=== PATIENT | male | born 1950 | race Caucasian/White ===

== ENCOUNTER 2020-11-05 12:42 | Outpatient (RCR) | payer MEDICARE, OTHER ==
[2021-01-30] MEDS ORDERED: AMLO1CAP5 PO (12:09)
[2021-01-30] MEDS ORDERED: TMSL.4C PO (12:09)
[2021-01-30] MEDS ORDERED: FINA5TAB6 PO (12:09)
[2021-01-30] MEDS ORDERED: MULT-1136 PO (12:09)
[2021-01-30] MEDS ORDERED: ASPI-808 PO (12:09)
[2021-01-30] MEDS ORDERED: DOCO1CAP3 PO (12:09)
[2021-01-30] MEDS ORDERED: RIVA20TA PO (12:09)
[2021-01-30] MEDS ORDERED: TRAM50TA3 PO (12:09)
[2021-01-30] MEDS ORDERED: VITA-189 PO (12:09)
[2021-01-30] MEDS ORDERED: AMIO200T6 PO (12:09)
== END 2021-02-03 | disposition home or self-care (01) ==
LOC: ONC 12:42
PROVIDERS: ATTEND Radiology Radiation Oncology
DX: C61 Malignant neoplasm of prostate (principal); I10 Essential (primary) hypertension; I25.10 Atherosclerotic heart disease of native coronary artery without angina pectoris; J44.9 Chronic obstructive pulmonary disease, unspecified; Z87.891 Personal history of nicotine dependence; Z80.1 Family history of malignant neoplasm of trachea, bronchus and lung
CPT/HCPCS: 76873; G0463; 99205

== ENCOUNTER 2021-01-30 05:33 | Outpatient (CLI) | payer MEDICARE, OTHER ==
[~2021-01-30] VITALS: Ht 170 cm; Wt 100.0 kg
[2021-01-30] MEDS ORDERED: RIVA20TA PO (12:09)
[2021-01-30] MEDS ORDERED: FINA5TAB6 PO (12:09)
[2021-01-30] MEDS ORDERED: VITA-189 PO (12:09)
[2021-01-30] MEDS ORDERED: DOCO1CAP3 PO (12:09)
[2021-01-30] MEDS ORDERED: AMLO1CAP5 PO (12:09)
[2021-01-30] MEDS ORDERED: TMSL.4C PO (12:09)
[2021-01-30] MEDS ORDERED: ASPI-808 PO (12:09)
[2021-01-30] MEDS ORDERED: TRAM50TA3 PO (12:09)
[2021-01-30] MEDS ORDERED: AMIO200T6 PO (12:09)
[2021-01-30] MEDS ORDERED: MULT-1136 PO (12:09)
== END 2021-01-30 12:27 | disposition home or self-care (01) ==
LOC: PREOP 05:33
PROVIDERS: ATTEND Specialist
DX: Z01.818 Encounter for other preprocedural examination (principal)

== ENCOUNTER 2021-02-06 08:44 | Day surgery (SDC) | payer MEDICARE, OTHER ==
[~2021-02-06] VITALS: Ht 170 cm; Wt 100.0 kg
[2021-02-06] VITALS (8 sets, daily range): BP systolic 98–154; BP diastolic 61–98
[~2021-02-06 08:44] MED LIST: AMIO200T6 PO; AMLO1CAP5 PO; ASPI-808 PO; DOCO1CAP3 PO; FINA5TAB6 PO; MULT-1136 PO; RIVA20TA PO; TMSL.4C PO; TRAM50TA3 PO; VITA-189 PO
[2021-02-06] MEDS: LACTATED RINGERS 1,000 ML IV PRN ×2 (10:08→11:45)
--- NOTE | 2021-02-06 10:19 | Progress Note-Pre Operative ---
Pre-Operative Progress Note H&P Reviewed The H&P was reviewed, patient examined and no changes noted. Date Seen by Provider: Feb 06, 2021 Time Seen by Provider: 10:18 Date H&P Reviewed: Feb 06, 2021 Time H&P Reviewed: 10:19 Pre-Operative Diagnosis: Prostate cancer cT2b, PSA (4.3 on Proscar), Gerry 7 (4+3) KRISTIE AUGUSTE MD Feb 06, 2021 10:19
[2021-02-06] MEDS ORDERED: TRAM50TA3 PO (10:21)
[2021-02-06] MEDS ORDERED: CEPH500T PO (10:23)
--- NOTE | 2021-02-06 10:28 | Discharge Inst-Simple/Standard ---
Discharge Inst-Standard Reconcile Patient Problems Problems Reviewed?: Yes Discharge Medications New, Converted or Re-Newed RX: RX Given to Pt/Family Patient Instructions/Follow Up Plan of Care/Instructions/FU: 1) One month post implant scan at [facility] [place] [facility] 03/06/21 at 1:00 p.m. 2)Follow up with Dr. Baldwin at 03/06/21 at 2:45 p.m. Activity as Tolerated: Yes Discharge Diet: No Restrictions Other Inst to Patient Please instruct patient on catheter care and teaching on jacobo catheter removal for Thursday02/11/21. KRISTIE AGUUSTE MD Feb 06, 2021 10:28
[2021-02-06] MEDS ORDERED: fentaNYL INJ 100 MCG/2 ML AMP ONE (10:39)
[2021-02-06] MEDS ORDERED: BACITRACIN OINTMENT 28 GM TUBE ONE (10:52)
[2021-02-06] MEDS ORDERED: ONDANSETRON 4 MG/2 ML (SDV) Z0FRAN ONE (11:24)
[2021-02-06] MEDS ORDERED: LIDOCAINE PF 2% 5 ML (XYLOCAINE) VIAL ONE (11:24)
[2021-02-06] MEDS ORDERED: proPOfol 200 MG/20 ML (DIPRIVAN) VIAL IV ONE (11:24)
[2021-02-06] MEDS ORDERED: SEVOFLURANE (ULTANE) 15 ML INHAL SOLN ONE (11:47)
--- NOTE | 2021-02-06 12:09 | Progress Note-Post Operative ---
Post-Operative Progess Note Surgeon (s)/[facility] Former (s) Surgeon KRISTIE AUGUSTE MD [facility] Former: Mani ALLEN MD Pre-Operative Diagnosis Prostate cancer cT2b, PSA (4.3 on Proscar), Gerry 7 (4+3) Post-Operative Diagnosis Same as pre-op Procedure & Operative Findings Date of Procedure 02/06/21 Procedure Performed/Findings (1) 67% Cesium 131 permanent prostate seed implant (2) Injection of biodegradable hydrogel prostate-rectal spacer utilizing the [employer] Deja system (3) Cystogram Prostate volume 31.35 cc Anesthesia Type General Estimated Blood Loss Estimated blood loss (mL): Minimal Specimens/Packing Specimens Removed None Packing: None KRISTIE AUGUSTE MD Feb 06, 2021 12:09
--- NOTE | 2021-02-06 13:40 | Diagnostic Imaging Report ---
INDICATION: History of prostate cancer. Brachytherapy. COMPARISON: None. TOTAL FLUOROSCOPY TIME: 9.9 seconds. TOTAL NUMBER OF FLUOROSCOPIC IMAGES SAVED: 1. FINDINGS: Fluoroscopic guidance was provided during brachytherapy. Images provided show metallic radiation seeds projecting over the lower midline pelvis. Please note, interpreting radiologist was not present during the procedure. IMPRESSION: 1. Fluoroscopic guidance provided intraoperatively. Dictated by: Dictated on workstation # [id number]
== END 2021-02-06 13:40 | disposition home or self-care (01) ==
LOC: SDC 08:44
PROVIDERS: ATTEND Radiology Radiation Oncology
DX: C61 Malignant neoplasm of prostate (principal); I10 Essential (primary) hypertension; I25.10 Atherosclerotic heart disease of native coronary artery without angina pectoris; I48.91 Unspecified atrial fibrillation; J44.9 Chronic obstructive pulmonary disease, unspecified; M19.042 Primary osteoarthritis, left hand; M19.041 Primary osteoarthritis, right hand; Z79.899 Other long term (current) drug therapy; Z79.82 Long term (current) use of aspirin; Z79.891 Long term (current) use of opiate analgesic; Z79.01 Long term (current) use of anticoagulants; Z87.891 Personal history of nicotine dependence
CPT/HCPCS: 55874; 55876; 76000; 76965; 77290; 77318; 77332; 77370; 77470; 77778; 87081; C1715 ×2; C1889; C2643

== ENCOUNTER 2021-05-03 08:28 | Outpatient (RCR) | payer MEDICARE, OTHER ==
[~2021-05-03 08:28] MED LIST changes: -AMIO200T6 PO; +AMIO200T65 PO; +CEPH500T PO
== END 2021-05-17 | disposition home or self-care (01) ==
LOC: ONC 08:28
PROVIDERS: ATTEND Radiology Radiation Oncology
DX: Z51.0 Encounter for antineoplastic radiation therapy (principal); C61 Malignant neoplasm of prostate; I10 Essential (primary) hypertension; I25.10 Atherosclerotic heart disease of native coronary artery without angina pectoris; J44.9 Chronic obstructive pulmonary disease, unspecified; I48.91 Unspecified atrial fibrillation; Z87.891 Personal history of nicotine dependence; Z80.1 Family history of malignant neoplasm of trachea, bronchus and lung
CPT/HCPCS: 77290; 77295; 77300; 77301; 77334; 77336; 77338; 77385; 77470

== ENCOUNTER 2021-06-18 09:55 | Outpatient (RCR) | payer MEDICARE, OTHER | END 2021-07-15 | disposition home or self-care (01) | LOC: ONC 09:55 | PROVIDERS: ATTEND Radiology Radiation Oncology | DX: C61 Malignant neoplasm of prostate (principal); I10 Essential (primary) hypertension; I25.10 Atherosclerotic heart disease of native coronary artery without angina pectoris; J44.9 Chronic obstructive pulmonary disease, unspecified; I48.91 Unspecified atrial fibrillation; Z87.891 Personal history of nicotine dependence | CPT/HCPCS: 84153; G0463; 99213 ==

== ENCOUNTER 2021-12-26 09:17 | Outpatient (RCR) | payer MEDICARE, OTHER | END 2022-01-15 | disposition home or self-care (01) | LOC: ONC 09:17 | PROVIDERS: ATTEND Radiology Radiation Oncology | DX: C61 Malignant neoplasm of prostate (principal); I10 Essential (primary) hypertension; I25.10 Atherosclerotic heart disease of native coronary artery without angina pectoris; J44.9 Chronic obstructive pulmonary disease, unspecified; I48.91 Unspecified atrial fibrillation; Z87.891 Personal history of nicotine dependence | CPT/HCPCS: 99213 ==

== ENCOUNTER 2023-01-01 10:39 | Outpatient (RCR) | payer MEDICARE, OTHER | END 2023-01-15 | disposition home or self-care (01) | LOC: ONC 10:39 | PROVIDERS: ATTEND Radiology Radiation Oncology | DX: C61 Malignant neoplasm of prostate (principal); I10 Essential (primary) hypertension; I25.10 Atherosclerotic heart disease of native coronary artery without angina pectoris; J44.9 Chronic obstructive pulmonary disease, unspecified; I48.91 Unspecified atrial fibrillation | CPT/HCPCS: 99213 ==